=== PATIENT | female | born 1955 | race Caucasian/White ===

== ENCOUNTER → 2018-01-19 | Outpatient (CLI) | payer OTHER ==
[~2018-01-19] MED LIST: ALBUTEROL PO; ALBUTEROL0.63 MG/3 INH; BIOTIN PO; BYSTOLIC10 MG PO; CEFTIN500 MG PO; DIAZEPAM5 MG PO; FLUDROCORTISON0.1 MG PO; HYDROCODON-ACE1 EA12 PO; I-CAPS WITH LU1 EACH PO; LEVOTHYROXINE50 MCG PO; LEXAPRO10 MG PO; LISINOPRIL10 MG PO; MONTELUKAST SOD10 MG PO; NEXIUM40 MG PO; OMEPRAZOLE40 MG PO; OSPHENA PO; VITAMIN B12 PO
--- NOTE | 2018-01-19 14:35 | Diagnostic Imaging Report ---
PROCEDURE:C-SPINE AP AND LAT WITH FLEX AND EXT COMPARISON:[facility], DX, SPINE CERVICAL AP\T\LAT FLEX\T\EXT, 06/29/2017, 0:00. INDICATIONS:C-SPINE HERNIATION FINDINGS: The cervical vertebral bodies to be visualized to the level of C7. Anterior cervical discectomy and fusion hardware at C6-7 is intact stable in appearance without lucency to suggest loosening. Alignment: 1 mm anterolisthesis at C3 on C4 and at C5 on C6 on neutral position. Only the C5-6 anterolisthesis was present on previous exam and is stable. With flexion, there is anterolisthesis of C3 on C4 of 2 mm. This is stable compared to previous exam. There is anterolisthesis of C4 on C5 of 2 mm. This is stable compared to previous exam. Listhesis of C5 on C6 is unchanged compared to neutral position. With extension, anterolisthesis of C3 on C4 diminishes to 1 mm. Listhesis of C5 on C6 is unchanged. The vertebral body heights are symmetric. Disc space narrowing and endplate osteophytic lipping of C4-5 and C5-6 are stable. The facets and spinous processes are normally aligned. No prevertebral soft tissue swelling. Alignment is maintained on AP image. Skull base and upper chest are unremarkable. CONCLUSION: 1. Stable ACDF of C6-7. No complications associated with the hardware. 2. Anterolisthesis of C3 on C4 increasing on flexion with some reduction on extension. 3. Anterolisthesis of C4 on C5 visible on flexion with complete reduction on extension. 4. Static anterolisthesis of C5 on C6. 5. Stable endplate degenerative changes. Dictated by: Reynaldo Roberson M.D. on 01/19/2018 at 14:35 Electronically approved by: Reynaldo Roberson M.D. on 01/19/2018 at 14:35
== END ==
LOC: RAD 13:30
PROVIDERS: ATTEND Neurological Surgery
DX: M50.20 Other cervical disc displacement, unspecified cervical region (principal); Z98.1 Arthrodesis status
CPT/HCPCS: 72050

== ENCOUNTER → 2018-06-17 | Outpatient (CLI) | payer OTHER ==
--- NOTE | 2018-06-17 10:18 | Diagnostic Imaging Report ---
PROCEDURE:ULTRASOUND GUIDANCE FOR PROCEDURE (LEFT THYROID NODULE FINE NEEDLE ASPIRATION) COMPARISON:None. INDICATIONS:Left Thyroid Nodule FINDINGS/CONCLUSION: Ultrasound guidance was used to perform a left thyroid nodule fine needle aspiration. Please refer to the FNA report for additional details. Dictated by: ROMINA MADDEN M.D. on 06/17/2018 at 10:24 Electronically approved by: ROMINA MADDEN M.D. on 06/17/2018 at 10:24
--- NOTE | 2018-06-17 10:21 | Diagnostic Imaging Report ---
PROCEDURE:ULTRASOUND GUIDED LEFT THYROID LOBE NODULE FINE NEEDLE ASPIRATION COMPARISON:None. INDICATIONS:Left Thyroid Nodule INTERACTIVE DESIGNER: Josefa Madden MD ANESTHESIA/MEDICATIONS: Local subcutaneous 1% lidocaine 5 cc FINDINGS: Written and verbal consent were obtained. Patient was placed in the supine position. Preliminary ultrasound identified a hypoechoic nodule in the left thyroid lobe with coarse calcifications. A safe entry route was identified and the overlying skin was prepped and draped in usual sterile fashion. Lidocaine 1% was used for local pain control. With ultrasound guidance, a total of seven fine needle aspirates were obtained with a 25 gauge needle. Some resistance was encountered on some aspirates due to course calcifications impeding needle passes. Multiple aspirates were obtained and provided to the pathology staff. The needle was removed and a sterile bandage was placed. The patient tolerated the procedure well, and there were no immediate post-procedural complications. CONCLUSION: Ultrasound guided fine needle aspiration of left thyroid lobe nodule. Dictated by: JOSEFA MADDEN M.D. on 06/17/2018 at 10:28 Electronically approved by: JOSEFA MADDEN M.D. on 06/17/2018 at 10:28
== END ==
LOC: US 08:40
PROVIDERS: ATTEND Family Medicine
DX: E07.89 Other specified disorders of thyroid (principal)
CPT/HCPCS: 10022; 76942; 88112; 88305

== ENCOUNTER → 2018-12-28 | Outpatient (CLI) | payer OTHER ==
[~2018-12-28] MED LIST changes: +IOPAMIDOL 370 MG/ML 200 ML INFUS..BTL INJ ONE; +SODIUM CHLORIDE 0.9% 50ML 50 ML ONE
[2018-12-28 08:53] LABS: BLOOD UREA NITROGEN 16 mg/dL (7-26); BUN/CREATININE RATIO 20 (6-25); EST GLOMERULAR FILTRATION RATE > 60 ML/MIN (60-)
--- NOTE | 2018-12-28 10:43 | Diagnostic Imaging Report ---
EXAM: CT ABDOMEN AND PELVIS WITH IV CONTRAST INDICATION: Right sided abdominal pain. COMPARISON: CT abdomen/pelvis 11/29/2016 report, however images are not available for review. TECHNIQUE: The abdomen and pelvis were scanned using a multidetector helical scanner. Coronal and sagittal reformations were obtained. Routine protocol performed. IV Contrast: 100 cc Isovue-370 Dose length product: 776.4 mGy-cm Dose modulation, iterative reconstruction, and/or weight based adjustment of the mA/kV was utilized to reduce the radiation dose to as low as reasonably achievable. FINDINGS: LOWER THORAX: No consolidations LIVER: No masses or biliary dilatation. Status post cholecystectomy. SPLEEN: No splenomegaly. PANCREAS: No evidence of mass or ductal dilatation. ADRENALS: No adrenal nodule. KIDNEYS: No evidence of stone, mass, or hydronephrosis. GI TRACT: No distention, wall thickening or evidence of obstruction. Normal appendix. Colonic diverticulosis without CT evidence of diverticulitis. VESSELS: There is atherosclerotic calcification relating to mild stenosis at the origin of the celiac artery. There is noncalcified plaque at the origin of the superior mesenteric artery leading to severe focal stenosis on series 2, image 24. The distal mesenteric branches are well opacified. The CA is unremarkable. PERITONEUM/RETROPERITONEUM: No free air or fluid LYMPH NODES: No lymphadenopathy PELVIS: Unremarkable. BONES AND SOFT TISSUES: No acute osseous abnormality. No suspicious lytic or blastic lesions. Mild degenerative disc changes, most pronounced at L5-S1. 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 Patent CA. No CT evidence of bowel ischemia. While report from CT on 11/29/2016 is available, images are not available for review at the time of this dictation for comparison. Signed by: Dr. Josefa Gee MD on 12/28/2018 10:39 AM
== END ==
LOC: CT 07:50
PROVIDERS: ATTEND Family Medicine
DX: R10.9 Unspecified abdominal pain (principal)
CPT/HCPCS: 36415; 74177; 82565; 84520; Q9967

== ENCOUNTER 2019-02-03 13:50 | Observation (INO) | payer OTHER ==
[2019-02-02 15:53] LABS: BASOPHILS % 0.6 % (0.0-1.0); EOSINOPHILS # (AUTO) 0.4 (0.0-0.4); EOSINOPHILS % 6.4 % (0.0-6.0); HEMATOCRIT 39.3 % (34.2-44.1); HEMOGLOBIN 13.7 g/dL (12.0-16.0); LYMPHOCYTES # (AUTO) 2.7 (1.0-3.2); LYMPHOCYTES % 40.3 % (18.0-39.1); MEAN CORPUSCULAR HEMOGLOBIN 32.9 pg (28-32); MEAN CORPUSCULAR HGB CONC 34.9 g/dL (31-35); MEAN CORPUSCULAR VOLUME 94.5 fL (81-99); MONOCYTES # (AUTO) 0.5 (0.2-0.8); MONOCYTES % 7.9 % (4.4-11.3); NEUTROPHILS % 44.4 % (38.7-80.0); PLATELET COUNT 214 x10e3/uL (140-360); RED BLOOD COUNT 4.16 x10e6/uL (3.6-5.1); RED CELL DISTRIBUTION WIDTH 12.2 % (11.7-14.4)
[2019-02-02 16:03] LABS: INR 0.92; PROTHROMBIN TIME 12.8 seconds (11.9-14.5)
[2019-02-02 16:14] LABS: ALANINE AMINOTRANSFERASE 19 IU/L (0-55); ALBUMIN 3.7 g/dL (3.5-5.0); ALKALINE PHOSPHATASE 91 IU/L (40-150); ANION GAP 10.1 mmol/L (8-16); BLOOD UREA NITROGEN 13 mg/dL (7-26); BUN/CREATININE RATIO 17 (6-25); CALCIUM 9.9 mg/dL (8.4-10.2); CARBON DIOXIDE 28 mmol/L (22-29); CHLORIDE 106 mmol/L (98-107); CREATININE, SERUM 0.76 mg/dL (0.57-1.11); EST GLOMERULAR FILTRATION RATE > 60 ML/MIN (60-); GLUCOSE 85 mg/dL (74-118); POTASSIUM 4.1 mmol/L (3.5-5.1); SODIUM 140 mmol/L (136-145)
--- NOTE | 2019-02-02 19:00 | NUR ---
RECEIVED REPORT FROM DAY NURSE. PATIENT IS RESTING COMFORTABLY IN BED. BED IS IN THE LOWEST POSITION AND CALL SMITH IS WITHIN REACH. WILL CONTINUE TO MONITOR PATIENT.
[2019-02-03] VITALS (9 sets, daily range): BP systolic 126–186; BP diastolic 67–113
[~2019-02-03] VITALS: Ht 154.9 cm; Wt 97.1 kg
[~2019-02-03 13:50] MED LIST changes: +ALPRAZOLAM0.5 MG PO; -IOPAMIDOL 370 MG/ML 200 ML INFUS..BTL INJ ONE; -SODIUM CHLORIDE 0.9% 50ML 50 ML ONE
--- OUTSIDE RECORDS SUMMARY | 2019-02-03 13:52 | XMS REPORT | Summary of Care ---
Author Author [facility] Address Unknown Phone Unavailable Encounter HQ [facility]) [id number] Date(s): 09/04/15 - 10/03/15 [facility] Discharge Disposition: Home Attending Physician: Nadir Buck MD Vital Signs No data available for this section Problem List No data available for this section Allergies, Adverse Reactions, Alerts Substance Reaction Severity Status NKDA Active Medications No data available for this section Results No data available for this section Immunizations No data available for this section Procedures No data available for this section Social History No data available for this section Assessment and Plan No data available for this section
--- OUTSIDE RECORDS SUMMARY | 2019-02-03 13:52 | XMS REPORT | Summary of Care ---
Author Author [facility] Address Unknown Phone Unavailable Encounter HQ [facility]) [id number] Date(s): 05/06/15 - 06/04/15 formerly [facility] Discharge Disposition: Home Attending Physician: Nadir Buck [...]
--- OUTSIDE RECORDS SUMMARY | 2019-02-03 13:52 | XMS REPORT | Summary of Care ---
Author Organization Unknown Address Unknown Phone Unavailable Encounter HQ Janay[facility]) [id number] Date(s): 03/29/15 - 03/29/15 [facility] [address] [place] [address]- Discharge Disposition: Home Physician Attending: Santhosh Hicks MD Physician Admitting: Santhosh Hicks MD Physician_Referring: Santhosh Hicks MD Vital Signs Most recent to 1 oldest [Reference Range]: Height 157.48 cm (03/29/15 1:00 PM) Weight 117.273 kg (03/29/15 1:00 PM) Body Mass Index 47.29 m2 (03/29/15 1:00 PM) Problem List No data available for this [...]
--- OUTSIDE RECORDS SUMMARY | 2019-02-03 13:52 | XMS REPORT | Summary of Care ---
Author Organization Unknown Address Unknown Phone Unavailable Encounter HQ [facility]an[facility]slim[facility]) [id number] Date(s): 04/04/15 - 05/03/15 [facility] Discharge Disposition: Home Physician Attending: Nadir Buck MD Vital Signs No data [...]
--- OUTSIDE RECORDS SUMMARY | 2019-02-03 13:52 | XMS REPORT | Continuity of Care Document ---
Author Author Tracy mikal Organization Interface Address Unknown Phone Unavailable Problems Problem Status Onset Date Classification Date Reported Comments Source M25.50 - PAIN IN UNSPECIFIED JOINT Active 03/30/2018 [facility] RT HAND INFECTION Active 03/29/2015 [facility] RIGHT HAND/MIDDLE FINGER Active [facility] RT HAND MIDDLE FINGER Active [facility] Medications Medication Details Route Status Patient Instructions Ordering Provider Order Date Source Allergies, Adverse Reactions, Alerts Substance Category Reaction Severity Reaction type Status Date Reported Comments Source Immunizations Immunization Date Given Site Status Last Updated Comments Source Results Order Name Results Value Reference Range Date Interpretation Comments Source Hand 3 views Bilateral DX Hand 3 views Bilateral DX EXAM: XR BILATERAL HAND 3 VIEWS DATE: 03/30/2018 2:27 PM CDT INDICATION: - M25.50 Pain in unspecified joint COMPARISON: None TECHNIQUE: PA, lateral and oblique radiographs of the bilateral hands. FINDINGS: No acute fracture or malalignment is identified. Mild narrowing of the intercarpal joints and interphalangeal joints visualized bilaterally. No signs of erosions. No osteophytosis. No soft tissue abnormality is identified. IMPRESSION: Specific mild narrowing of the intercarpal joints and interphalangeal joints. This could be secondary to osteoarthritis. 03/30/2018 - - Read by: Danny Horvath MD Dictated Date/time: 03/30/18 14:57 Electronically Signed by: Danny Horvath MD 03/30/18 14:59 FINAL REPORT [facility] Foot 3 views bilateral DX Foot 3 views bilateral DX EXAM: XR BILATERAL FOOT 3 VIEWS DATE: 03/30/2018 2:27 PM CDT INDICATION: - M25.50 Pain in unspecified joint COMPARISON: None TECHNIQUE: AP, lateral and oblique radiographs of the bilateral feet FINDINGS: No acute fracture or malalignment is identified. Midfoot DJD noted bilaterally. Achilles and plantar enthesophyte also visualized bilaterally. No soft tissue abnormality is identified. IMPRESSION: 1. Midfoot DJD bilaterally. 2. Achilles and plantar enthesophytes. 03/30/2018 - - Read by: Danny Horvath MD Dictated Date/time: 03/30/18 14:59 Electronically Signed by: Danny Horvath MD 03/30/18 15:05 FINAL REPORT [facility] Vital Signs Vital Sign Value Date Comments Source Weight 117.273 03/29/2015 [facility] BMI Calculated 47.29 03/29/2015 [facility] Height 157.48 cm 03/29/2015 [facility] Encounters Location Location Details Encounter Type Encounter Number Reason For Visit Attending Provider ADM Date DC Date Status Source [facility] Outpatient [id number] Santhosh Hicks 03/29/2015 03/30/2015 [facility] [id number] Nadir Buck 04/04/2015 05/04/2015 [facility] [id number] Nadir Buck 05/06/2015 06/05/2015 [facility] [id number] Nadir Buck 06/05/2015 07/05/2015 [facility] [place] [facility] [id number] Nadir Buck 07/05/2015 07/24/2015 [facility] [id number] Nadir Buck 08/05/2015 09/04/2015 [facility] [id number] Nadir Buck 09/04/2015 10/04/2015 [facility] [place] [facility] [place] [facility] [id number] Mirna Lott 03/30/2018 03/31/2018 [facility] [place] Procedures Procedure Code Date Perfomer Comments Source
--- OUTSIDE RECORDS SUMMARY | 2019-02-03 13:52 | XMS REPORT ---
Author Author [facility] Address Unknown Phone Unavailable Care Team Providers Care Executive Administrative Asst Name Role Phone Marian TORRES Unavailable Unavailable ANIKA SANCHEZ Unavailable Unavailable DIANA JETER Unavailable Unavailable Problems This patient has no known problems. Allergies, Adverse Reactions, Alerts This patient has no known allergies or adverse reactions. Medications This patient has no known medications. Results Test Description Test Time Test Comments Text Results Atomic Results Result Comments CT ABDOMEN/PELVIS W 2018-12-28 10:23:00 [place] [address] Patient Name: EMMA RYAN MR #: [id number] : 1955 Age/Sex: 63/F Req #: [id number] Adm Physician: Ordered by: ANIA TORRES M.D. Report #: [id number] Location: CT Room/Bed: Procedure: [id number] CT/CT ABDOMEN/PELVIS W Exam Date: 12/28/18 Exam Time: 0914 REPORT STATUS: Signed EXAM: CT ABDOMEN AND PELVIS WITH IV CONTRAST INDICATION: Right sided abdominal pain. COMPARISON: CT abdomen/pelvis 11/29/2016 report, however images are not available for review. TECHNIQUE: The abdomen and pelvis were scanned using a multidetector helical scanner. Coronal and sagittal reformations were obtained. Routine protocol performed. IV Contrast: 100 cc Isovue-370 Dose length product: 776.4 mGy-cm Dose modulation, iterative reconstruction, and/or weight based adjustment of the mA/kV was utilized to reduce the radiation dose to as low as reasonably achievable. FINDINGS: LOWER THORAX: No consolidations LIVER: No masses or biliary dilatation. Status post cholecystectomy. SPLEEN: No splenomegaly. PANCREAS: No evidence of mass or ductal dilatation. ADRENALS: No adrenal nodule. KIDNEYS: No evidence of stone, mass, or hydronephrosis. GI TRACT: No distention, wall thickening or evidence of obstruction. Normal appendix. Colonic diverticulosis without CT evidence of d iverticulitis. VESSELS: There is atherosclerotic calcification relating to mild stenosis at the origin of the celiac artery. There is noncalcified plaque at the origin of the superior mesenteric artery leading to severe focal stenosis on series 2, image 24. The distal mesenteric branches are well opacified. The CA is unremarkable. PERITONEUM/RETROPERITONEUM: No free air or fluid LYMPH NODES: No lymphadenopathy PELVIS: Unremarkable. BONES AND SOFT TISSUES: No acute osseous abnormality. No suspicious lytic or blastic lesions. Mild degenerative disc changes, most pronounced at L5-S1. 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 Patent CA. No CT evidence of bowel ischemia. While report from CT on 11/29/2016 is available, images are not available for review at the time of this dictation for comparison. Isabel d by: Dr. Romina Madden MD on 12/28/2018 10:39 AM Dictated By: ROMINA MADDEN MD 1039 Transcribed By: SHU on 12/28/18 1039 COPY TO: ANIA TORRES M.D. FNA THYROID 2018-06-17 10:28:00 [place] [address] Patient Name: EMMA RYAN MR #: [id number] : 1955 Age/Sex: 63/F Req #: [id number] Adm Physician: Ordered by: ANIKA SANCHEZ DO Report #: [id number] Location: US Room/Bed: Procedure: [id number] US/FNA THYROID Exam Date: Exam Time: REPORT STATUS: Signed PROCEDURE: ULTRASOUND GUIDED LEFT THYROID LOBE NODULE FINE NEEDLE ASPIRATION COMPARISON: None. INDICATIONS: Left Thyroid Nodule OPERATIONAL REVIEW SERGEANT: Romina Madden MD ANESTHESIA/MEDICATIONS: Local subcutaneous 1% lidocaine 5 cc FINDINGS: Written and verbal consent were obtained. Patient was placed in the supine position. Preliminary ultrasound identified a hypoechoic nodule in the left thyroid lobe with coarse calcifications. A safe entry route was identified and the overlying skin was prepped and draped in usual sterile fashion. Lidocaine 1% was used for local pain control. With ultrasound guidance, a total of seven fine needle aspirates were obtained with a 25 gauge needle. Some resistance was encountered on some aspirates due to course calcifications impeding needle passes. Multiple aspirates were obtained and provided to the pathology staff. The needle was removed and a sterile bandage was placed. The patient tolerated the procedure well, and there were no immediate post-procedural complications. CONCLUSION: Ultrasound guided fine needle aspiration of left thyroid lobe nodule. Dictated by: ROMINA MADDEN M.D. on 06/17/2018 at 10:28 Electronically approved by: ZAIRA MADDEN M.D. on 06/17/2018 at 10:28 Dictated By: ROMINA MADDEN MD 1028 Transcribed By: RUTH on 06/17/18 1028 COPY TO: ANIKA SANCHEZ DO GUIDANCE FOR PROCEDURE 2018-06-17 10:24:00 [place] [address] Patient Name: EMMA RYAN MR #: [id number] : 1955 Age/Sex: 63/F Req #: [id number] Adm Physician: Ordered by: ANIKA SANCHEZ DO Report #: [id number] Location: Room/Bed: Procedure: US/US GUIDANCE FOR PROCEDURE Exam Date: Exam Time: REPORT STATUS: Signed PROCEDURE: ULTRASOUND GUIDANCE FOR PROCEDURE (LEFT THYROID NODULE FINE NEEDLE ASPIRATION) COMPARISON: None. INDICATIONS: Left Thyroid Nodule FINDINGS/CONCLUSION: Ultrasound guidance was used to perform a left thyroid nodule fine needle aspiration. Please refer to the FNA report for additional details. Dictated by: ROMINA MADDEN M.D. on 06/17/2018 at 10:24 Electronically approved by: ROMINA MADDEN M.D. on 06/17/2018 at 10:24 Dictated By: ROMINA MADDEN MD 1024 Transcribed By: RUTH on 06/17/18 1024 COPY TO: ANIKA SANCHEZ DO SPINE CERVICAL AP LAT FLEX EXT [place] [address] Patient Name: EMMA RYAN MR #: [id number] : 1955 Age/Sex: 62/F Req #: [id number] Adm Physician: Ordered by: DIANA JETER MD Report #: [id number] Location: [facility] Room/Bed: Procedure: [id number] DX/SPINE CERVICAL AP LAT FLEX EXT Exam Date: 01/19/18 Exam Time: 1330 REPORT STATUS: Signed PROCEDURE: C-SPINE AP AND LAT WITH FLEX AND EXT COMPARISON: [facility], DX, SPINE CERVICAL AP T LAT FLEX T EXT, 06/29/2017, 0:00. INDICATIONS: C-SPINE HERNIATION FINDINGS: The cervical vertebral bodies to be visualized to the level of C7. Anterior cervical discectomy and fusion hardware at C6-7 is intact stable in appearance without lucency to suggest loosening. Alignment: 1 mm anterolisthesis at C3 on C4 and at C5 on C6 on neutral position. Only the C5- 6 anterolisthesis was present on previous exam and is stable. With flexion, there is anterolisthesis of C3 on C4 of 2 mm. This is stable compared to previous exam. There is anterolisthesis of C4 on C5 of 2 mm. This is stable compared to previous exam. Listhesis of C5 on C6 is unchanged co mpared to neutral position. With extension, anterolisthesis of C3 on C4 diminishes to 1 mm. Listhesis of C5 on C6 is unchanged. The vertebral body heights are symmetric. Disc space narrowing and endplate osteophytic lipping of C4-5 and C5-6 are stable. The facets and spinous processes are normally aligned. No prevertebral soft tissue swelling. Alignment is maintained on AP image. Skull base and upper chest are unremarkable. CONCLUSION: 1. Stable ACDF of C6-7. No complications associated with the hardware. 2. Anterolisthesis of C3 on C4 increasing on flexion with some reduction on extension. 3. Anterolisthesis of C4 on C5 visible on flexion with complete reduction on extension. 4. Static anterolisthesis of C5 on C6. 5. Stable endplate degenerative changes. Dictated by: Raghav Roberson M.D. on 01/19/2018 at 14:35 Electronically approved by: Raghav Roberson M.D. on 01/19/2018 at 14:35 Dictated By: RAGHAV ROBERSON MD 1435 Transcribed By: RUTH on 01/19/18 1435 COPY TO: DIANA JETER MD SPINE CERVICAL AP LAT FLEX EXT [facility] [place] [address] Patient Name: EMMA RYAN MR #: [id number] : 1955 Age/Sex: 62/F Req #: [id number] Adm Physician: Ordered by: DIANA JETER MD Report #: [id number] Location: [facility] Room/Bed: Procedure: [id number] DX/SPINE CERVICAL AP LAT FLEX EXT Exam Date: 06/29/17 Exam Time: 1120 REPORT STATUS: Signed PROCEDURE: C-SPINE AP AND LAT WITH FLEX AND EXT COMPARISON: [facility], DX, C-SPINE 2 VIEWS AP T LATERAL, 05/28/2017, 7:14. INDICATIONS: Cervical fusion FINDINGS: C1 through C7 are visualized on the lateral view. The patient is status post anterior fusion of C6-C7 with metallic disc spacer that is in adequate alignment. No obvious bony fusion has occurred. Flexion and extension views demonstrate no change in alignment. The prevertebral soft tissues are not swollen. Mild degenerative change involving C4 and C5 is present. CONCLUSION: Status post C6-C7 fusion with a disc spacer present. Intact hardware with adequate alignment. Emely Armando D.O. Dictated by: Emely Armando D.O. on 06/29/2017 at 12:47 Electronically approved by: Emely Armando D.O. on 06/29/2017 at 12:47 Dictated By: EMELY ARMANDO DO 46 Transcribed By: RUTH on 06/29/171246 COPY TO: DIANA JETER MD
--- OUTSIDE RECORDS SUMMARY | 2019-02-03 13:52 | XMS REPORT | Summary of Care ---
Author Author [facility] Address Unknown Phone Unavailable Encounter HQ [facility]) [id number] Date(s): 08/05/15 - 09/03/15 [facility] Discharge Disposition: Home Attending Physician: Nadir [...]
--- OUTSIDE RECORDS SUMMARY | 2019-02-03 13:52 | XMS REPORT | Summary of Care ---
Author Author [facility] Address Unknown Phone Unavailable Encounter HQ [facility]) [id number] Date(s): 07/05/15 - 07/24/15 [facility] Discharge Disposition: Home Attending Physician: Nadir Buck [...]
--- OUTSIDE RECORDS SUMMARY | 2019-02-03 13:52 | XMS REPORT | Summary of Care ---
Author Author [facility] Outpatient Imaging [facility] Outpatient Imaging [facility] Address Unknown Phone Unavailable Encounter HQ Katient[facility]) [id number] Date(s): 03/30/18 - 03/30/18 [facility] Outpatient Imaging [facility] [address] [facility], [address] [place] [phone] Discharge Disposition: Home or Self Care Attending Physician: Mirna Lott MD Vital Signs No data available for [...]
--- OUTSIDE RECORDS SUMMARY | 2019-02-03 13:52 | XMS REPORT | Clinical Summary ---
Author Author [facility]ush [facility] Organization [facility] Address Unknown Phone Unavailable Care Team Providers Care Team Foreman Name Role Phone Asked, No Pcp PCP Unavailable Allergies No Known Allergies Medications End Date Status Medication Sig Dispensed Refills Start Date Active dicyclomine (BENTYL) 20 Take 20 mg by 1 mg tablet mouth every 6 7 (six) hours as needed. Active lisinopril Take 20 mg by 3 (PRINIVIL,ZESTRIL) 20 mg mouth once 6 tablet daily. Active esomeprazole (NexIUM) 40 Take 40 mg by 1 MG capsule mouth once 6 daily. Active fludrocortisone 0.1 mg Take by mouth 1 tablet once daily. 6 Active escitalopram (LEXAPRO) 10 Take 10 mg by 1 MG tablet mouth once 6 daily. Active cholecalciferol, vitamin Take 2,000 0 D3, (VITAMIN D3) 2,000 Units by unit capsule capsule mouth daily. Active traMADol (ULTRAM) 50 mg Take 50 mg by 0 tablet mouth every 6 (six) hours as needed for moderate pain. Active meclizine (ANTIVERT) 25 Take 25 mg by 0 mg tablet mouth 3 (three) times a day as needed for dizziness. Active ondansetron ODT Take 4 mg by 0 (ZOFRAN-ODT) 4 MG mouth every 8 disintegrating tablet (eight) hours as needed for nausea or vomiting. Active metroNIDAZOLE (FLAGYL) Take 500 mg 0 500 MG tablet by mouth 3 (three) times a day. Active levothyroxine (SYNTHROID, TAKE 1 TABLET 30 tablet 1 LEVOXYL) 75 mcg tablet ONCE DAILY ON 8 AN EMPTY STOMACH WITH WATER,WAIT 1 HOUR BEFORE EATING/TAKING MEDS-DAY! 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 Adrenal insufficiency 12/02/2016 Toxic thyroid nodule 12/02/2016 Hypothyroidism (acquired) 12/02/2016 History of hyperthyroidism 12/02/2016 Encounters Care Team Description Date Type Specialty Lesvia Lr MA 03/30/2018 Telephone Endocrinology Veronica Pearl MD 03/21/2018 Refill Endocrinology after 02/02/2018 Family History Medical History Relation Name Comments Heart disease Father Melanoma Mother Heart disease Paternal Grandfather Pancreatic cancer Sister Relation Name Status Comments Father Mother Alive Paternal Grandfather Sister Social History Date Tobacco Use Types Packs/Day Years Used Never Smoker Smokeless Tobacco: Never Used Alcohol Use Drinks/Week oz/Week Comments No Sex Assigned at Date Recorded Not on file Industry Job Start Date Occupation Not on file Not on file Not on file Travel End Travel History Travel Start No recent travel history available. Last Filed Vital Signs Not on file Plan of Treatment Health Maintenance Due Date Last Done Comments CERVICAL CANCER SCREENING 1978 BREAST CANCER SCREENING 2007 COLON CANCER SCREENING 2007 SHINGLES VACCINES (#1) 2007 INFLUENZA VACCINE 05/25/2019 Results Not on fileafter 02/02/2018 Insurance Payer Benefit Subscriber ID Type Phone Address Plan / Group CIGNA CIGNA OPEN xxxxxxxxxxx HMO ACCESS/NET WORK Advance Directives Patient has advance care planning documents on file. For more information, lewis altamirano contact: Ayush Cortez [address] [place] [address]
--- OUTSIDE RECORDS SUMMARY | 2019-02-03 13:52 | XMS REPORT | Summary of Care ---
Author Author [facility] Address Unknown Phone Unavailable Encounter [facility] [facility]) [id number] Date(s): 06/05/15 - 07/04/15 [facility] Discharge Disposition: Home Attending Physician: Nadir Buck [...]
[2019-02-03] MEDS ORDERED: ALPRAZOLAM 0.5 MG TAB ONE (13:57)
[2019-02-03] MEDS ORDERED: DIPHENHYDRAMINE HCL 25 MG CAP ONE (13:58)
[2019-02-03] MEDS ORDERED: MIDAZOLAM HCL 2 MG/2 ML VIAL ONE ×4 (14:31→15:47)
[2019-02-03] MEDS ORDERED: LIDOCAINE HCL 2% LOCAL 20 ML VIAL ONE (14:31)
[2019-02-03] MEDS ORDERED: FENTANYL CITRATE/PF 100MCG/2 ML INJ ONE ×2 (14:31→15:40)
[2019-02-03] MEDS ORDERED: HEPARIN SOD/SOD CHLORIDE 2,000 ML ONE (14:31)
[2019-02-03] MEDS ORDERED: IOPAMIDOL 300MG/ML 100 ML INFUS..BTL IV ONE ×3 (14:32→15:36)
[2019-02-03] MEDS ORDERED: SODIUM CHLORIDE 0.9% 1000ML 1,000 ML ONE (14:53)
[2019-02-03] MEDS ORDERED: IOPAMIDOL 300MG/ML 50ML INFUS..BTL IV ONE (15:28)
[2019-02-03] MEDS ORDERED: TICAGRELOR 90 MG TABLET ONE (15:43)
--- NOTE | 2019-02-03 16:00 | NUR ---
Transported to PACU room 20, s/p C and abdominal angiogram. Patient drowsy, easily aroused. Maintains airway and room air saturations of 99%. No gross issues of pressure, pain, pallor, or dysrhythmia. IV site patent with NS 0.9% at KVO to left hand. Patient hemodynamically stable with hemostasis to right groin, right groin dressing C/D/I without s/s of bleeding. Family at .
--- OUTSIDE RECORDS SUMMARY | 2019-02-03 16:20 | XMS REPORT | Clinical Summary ---
Author Author [facility]ush [facility] Organization [facility] Address Unknown Phone Unavailable Care Team Providers Care Professor Of Environmental Studies Name Role Phone Asked, No Pcp PCP [...] more information, lewis altamirano contact: Ayush Cortez [address] [place] [address]
--- NOTE | 2019-02-03 16:45 | NUR ---
Transported to room 183 via stretcher for telemetry observation. Report given to VÍCTOR Smallwood. Patient A, A, O x3, VSS, right groin dressing C/D/I, IV with NS at 75 ml/hr to left hand, denies pain, no complaints, family at bedside.
--- NOTE | 2019-02-03 17:10 | NUR ---
Recvd patient from [employer] lab[employer], drowsy, follows verbal orders, not in any distress, resp even and unlabored. Right groin incision area, no bleeding, hematoma and its soft to touch, keep monitoring, side rails X3 up
--- NOTE | 2019-02-03 20:30 | NUR ---
PATIENT IS COMPLAINING OF PAIN IN THE RIGHT GROIN. PATIENT ALSO HAS AN ELEVATED BLOOD PRESSURE. PAGED AWAITING CALL BACK.
--- NOTE | 2019-02-03 21:00 | NUR ---
MD CALLED BACK AND GAVE NEW ORDERS FOR PAIN AND BLOOD PRESSURE MEDICATIONS.
[2019-02-03] MEDS ORDERED: HYDRALAZINE HCL 10 MG TAB PO ONE (21:15)
[2019-02-03] MEDS ORDERED: MORPHINE SULFATE 2 MG/ML SYR 1ML IV ONE (21:15)
[2019-02-03] MEDS ORDERED: MORPHINE SULFATE INJ 4 MG/ML INJ 1ML IV ONE (21:30)
--- NOTE | 2019-02-03 23:30 | Operative Report ---
DATE OF PROCEDURE: 02/03/2019 SURGEON: Jamir Weir MD REPORT TITLE: Cardiac Director Compensation Procedure INDICATIONS: 1. Coronary artery disease. 2. Mesenteric artery stenosis. 3. Abnormal stress test. PROCEDURES PERFORMED: 1. Left heart catheterization, selective coronary angiography, left ventriculography. 2. Abdominal aortogram. 3. Bilateral renal angiograms. 4. Stent placement to the mesenteric artery. 5. Deployment of right groin Vascade closure device. COMPLICATIONS: None. RECOMMENDATIONS: Medical therapy. DESCRIPTION OF PROCEDURE: Access was obtained in the right femoral artery, 6-Mauritanian sheath was placed. Abdominal aortogram demonstrated mild coronary artery disease, 10-20% luminal stenosis without critical stenosis or occlusion. LV ejection fraction 60%. LV end-diastolic pressure of 10. No gradient across the aortic valve on pullback. Abdominal aortogram demonstrated a widely patent abdominal aorta. Selective renal angiography demonstrated mild disease in the left common renal artery, superior mesenteric artery had 80% proximal stenosis. A decision was made to intervene on the mesenteric artery. The sheath was exchanged to a 7-Mauritanian hockey-stick sheath, wire was advanced across the lesion for support, a 7 x 39 mm Elite stent was deployed at 11 atmospheres. Excellent result with less than 10% restenosis. No complication. Sheath was repaired using Mynx closure device. The patient was observed in the hospital. Jamir Weir MD [facility] /[id number]
[2019-02-04 04:41] VITALS: BP 145/81
--- NOTE | 2019-02-04 07:01 | NUR ---
report given to day nurse. patient is resting in bed. call diehl is within reach.
[2019-02-04 08:43] VITALS: BP 145/71
[2019-02-04 08:57] VITALS: BP 145/71
[2019-02-04] MEDS ORDERED: ASPIR 8181 MG PO (09:05)
[2019-02-04] MEDS ORDERED: ATORVASTATIN CA20 MG PO (09:05)
[2019-02-04] MEDS ORDERED: CLOPIDOGREL75 MG PO (09:06)
--- NOTE | 2019-02-04 10:17 | NUR ---
DISCHARGE INSTRUCTIONS REVIEWED WITH PT, VERBALIZED UNDERSTANDING, WHEELED OFF UNIT VIA WC , NO CHANGE IN CONDITION
== END 2019-02-04 10:18 | disposition home or self-care (01) ==
LOC: CATH LAB 13:50 → CATH LAB V 16:11 → IMCU 16:40
PROVIDERS: ADMIT Internal Medicine Interventional Cardiology; ATTEND Internal Medicine Interventional Cardiology
DX: I25.118 Atherosclerotic heart disease of native coronary artery with other forms of angina pectoris (principal); Z01.812 Encounter for preprocedural laboratory examination; R94.39 Abnormal result of other cardiovascular function study; Z82.49 Family history of ischemic heart disease and other diseases of the circulatory system
CPT/HCPCS: 36252; 37236; 93458; C1874; 36245; 36415; 75726; 80053; 85025; 85610; C1766; C1769; C1887; G0378; J2001; J2250; J2270; J7030; Q9967

== ENCOUNTER → 2019-07-13 | Outpatient (CLI) | payer OTHER ==
[~2019-07-13] MED LIST changes: +ASPIR 8181 MG PO; +ATORVASTATIN CA20 MG PO; +CLOPIDOGREL75 MG PO
--- NOTE | 2019-07-13 11:42 | Diagnostic Imaging Report ---
Examination: MRI SPINE CERVICAL WO CONTRAST History: Neck pain and associated weakness. Comparison studies: Cervical spine x-ray 01/19/2018 Technique: Sagittal T1, T2 and IR, axial T2 and axial gradient echo intravenous contrast: None Findings: Alignment: History of normal lordosis. No scoliosis. Cervicomedullary junction: No abnormalities. Patent foramen magnum. Soft tissues: No T2 hyperintense inflammatory changes. Spinal cord: Normal in size and signal from the foramen magnum through T1. Vertebrae: No fractures, infection or neoplasm. Prior anterior discectomy and fusion at C6 and C7. Degenerative changes: C1-C2: No abnormalities. C2-C3: Moderate right neural foraminal narrowing due to uncovertebral and facet arthropathy. No canal and left foraminal stenosis or degenerative disc. C3-C4: Diffuse disc osteophyte complex and moderate bilateral facet arthropathy result in mild right neural foraminal narrowing. No left foraminal or canal stenosis. C4-C5: Severe right and moderate left facet arthropathy result in mild right neural foraminal narrowing. No left foraminal or canal stenosis. Diffuse disc osteophyte complex. C5-C6: Diffuse disc osteophyte complex and mild bilateral uncovertebral arthropathy. No foraminal or canal stenosis. C6-C7: Severe bilateral uncovertebral arthropathy results in moderate bilateral neural foraminal narrowing. No canal stenosis. C7-T1: No abnormalities. IMPRESSION: 1. Degenerative changes at C2-C3 through C6-C7 with moderate right neural foraminal narrowing at C2-C3 and moderate bilateral foraminal narrowing at C6-C7. 2. No canal stenosis. Signed by: Dr. Kelly Lawrence M.D. on 07/13/2019 11:39 AM
== END ==
LOC: MRI 09:23
PROVIDERS: ATTEND Family Medicine
DX: M54.2 Cervicalgia (principal)
CPT/HCPCS: 72141

== ENCOUNTER → 2019-08-24 | Outpatient (RCR) | payer OTHER | LOC: PT 08-01 15:21 | PROVIDERS: ATTEND Neurological Surgery | DX: M50.123 Cervical disc disorder at C6-C7 level with radiculopathy (principal); M53.82 Other specified dorsopathies, cervical region; M62.81 Muscle weakness (generalized) ==

== ENCOUNTER 2019-09-05 13:00 | Outpatient (RCR) | payer OTHER | END 2019-09-23 | LOC: PT 13:00 | PROVIDERS: ATTEND Neurological Surgery | DX: M50.123 Cervical disc disorder at C6-C7 level with radiculopathy (principal) ==

== ENCOUNTER → 2019-11-28 | Outpatient (CLI) | payer OTHER ==
[~2019-11-28] MED LIST changes: +SODIUM CHLORIDE 0.9% 50ML 50 ML ONE
[2019-11-28 13:30] LABS: BLOOD UREA NITROGEN 13 mg/dL (7-26); BUN/CREATININE RATIO 17 (6-25); CREATININE, SERUM 0.77 mg/dL (0.57-1.11); EST GLOMERULAR FILTRATION RATE > 60 ML/MIN (60-)
--- NOTE | 2019-11-28 15:10 | Diagnostic Imaging Report ---
EXAMINATION: CT of the abdomen and pelvis with contrast. TECHNIQUE: Spiral CT images of the abdomen and pelvis were performed from the lung bases to the lesser trochanters after the intravenous administration of 100 cc of 370. Coronal and sagittal reformatted images were obtained. COMPARISON: CT abdomen and pelvis with contrast 12/28/2018 CLINICAL HISTORY:Left-sided abdominal pain, diarrhea, rectal bleeding DISCUSSION: ABDOMEN/PELVIS: LOWER THORAX:Subsegmental atelectasis in the dependent lower lobes. Lung bases are otherwise normal. HEPATOBILIARY: No focal hepatic lesions. No intra-or extrahepatic biliary ductal dilation. The gallbladder has been removed with metallic clips in the gallbladder fossa. SPLEEN: No splenomegaly. Small splenule adjacent to the hilum and anterior aspect of the spleen. PANCREAS: No focal masses or ductal dilatation. ADRENALS: No adrenal nodules. KIDNEYS/URETERS: No hydronephrosis, stones, or solid mass lesions. PELVIC ORGANS/BLADDER: Urinary bladder is incompletely distended and poorly evaluated. Uterus is anteflexed and appears normal. No adnexal mass. PERITONEUM/RETROPERITONEUM: No ascites. No pneumoperitoneum. LYMPH NODES: No pelvic sidewall, retroperitoneal, or mesenteric lymphadenopathy. VESSELS: Interval placement of a stent in the proximal SMA; patency of the stent would be better assessed by CT angiography. The distal main SMA and proximal visceral branches are patent. Mild atherosclerotic calcification at the celiac axis origin without significant stenosis. The CA is widely patent. Mild atherosclerotic calcification of the iliac arterial systems. The abdominal aorta is nonaneurysmal. Portal vein, splenic vein, and central superior mesenteric vein are patent GI TRACT: The large bowel is notable for multiple diverticula along the descending and sigmoid colon without wall thickening or adjacent inflammatory change. The appendix is normal. The stomach is collapsed with prominent rugal folds. No small bowel dilatation to suggest obstruction. BONES AND SOFT TISSUE: No osseous destructive lesions. Multilevel degenerative disc changes and facet arthropathy of the lumbar spine. No soft tissue abnormalities. IMPRESSION: No acute intra-abdominal or pelvic CT abnormalities. Sigmoid and descending colon diverticulosis without findings of diverticulitis. Interval placement of a stent within the proximal superior mesenteric artery, with patency poorly assessed on this examination. Celiac and CA origins remain widely patent. No findings to suggest bowel obstruction or ischemia. Signed by: Dr. Paco Gonzalez M.D. on 11/28/2019 3:08 PM
== END ==
LOC: CT 12:47
PROVIDERS: ATTEND Internal Medicine Gastroenterology
DX: R10.9 Unspecified abdominal pain (principal); K62.5 Hemorrhage of anus and rectum
CPT/HCPCS: 36415; 74177; 82565; 84520

== ENCOUNTER → 2019-11-30 | Day surgery (SDC) | payer OTHER ==
[~2019-11-30] MED LIST changes: +FENTANYL CITRATE/PF 100MCG/2 ML INJ ONE; +GLUCAGON FOR INJ 1 MG VIAL ONE; +HYOSCYAMINE 0.125 MG TAB ONE; +MIDAZOLAM HCL 2 MG/2 ML VIAL ONE; +PROPOFOL IV EMULSION 10 MG/ML 50 ML VIAL ONE; +SIMETHICONE 40 MG/0.6 ML BTL ONE; -SODIUM CHLORIDE 0.9% 50ML 50 ML ONE
[2019-11-30 14:44] VITALS: BP 100/70
--- NOTE | 2019-11-30 15:50 | Operative Report ---
DATE OF PROCEDURE: 11/30/2019 SURGEON: Aneesh Trevino MD PROCEDURE: Colonoscopy with biopsies. INDICATIONS FOR COLONOSCOPY: Colorectal cancer screening, chronic diarrhea, rectal bleeding. MEDICATIONS: The patient was done under MAC, please see anesthesiologist's note. PROCEDURE IN DETAIL: With the patient in the left lateral decubitus position, a flexible fiberoptic Olympus colonoscope was inserted into the rectum with ease and advanced all the way to the cecum. The mucosa overlying the cecum appeared to be within normal limits. The ileocecal valve was intubated and the scope was advanced into the terminal ileum. Biopsies were obtained. The scope was then withdrawn back into the colon. It was then withdrawn slowly. Mucosa overlying the ascending and the transverse appeared to be within normal limits. There was some patchy mild inflammatory changes noted in the left colon with some scattered diverticular disease. Biopsies were obtained. Similar findings were noted in the rectum and biopsies were obtained. The scope was then retroflexed into the distal rectum and moderate-sized internal hemorrhoids were noted, none of which was actively bleeding. The scope was then straightened out and it was subsequently withdrawn after securing an adequate stool specimen that was sent for the appropriate stool studies. The patient tolerated the procedure well. IMPRESSION: 1. Mild patchy left-sided colitis. 2. Diverticulosis. 3. Proctitis, mild. 4. Internal hemorrhoids, none actively bleeding. PLAN: Follow up histology. Follow up stool studies. Initiate Bentyl 10 mg 1 p.o. t.i.d. VSL#3 one p.o. b.i.d. Aneesh Trevino MD [facility] [place]/MODL /[id number] cc: Thony Beatty DO
[2019-11-30 16:22] LABS: WBC,FECAL (FECAL LACTOFERRIN) NEGATIVE (NEGATIVE)
[2019-12-01 14:37] LABS: C DIFFICILE TOXIN A&B AMP PROB NEGATIVE (NEGATIVE)
== END | disposition home or self-care (01) ==
LOC: OR 11:06
PROVIDERS: ATTEND Internal Medicine Gastroenterology
DX: K51.50 Left sided colitis without complications (principal); K57.30 Diverticulosis of large intestine without perforation or abscess without bleeding; K62.89 Other specified diseases of anus and rectum; K64.8 Other hemorrhoids; K21.9 Gastro-esophageal reflux disease without esophagitis; I10 Essential (primary) hypertension; E03.9 Hypothyroidism, unspecified; F32.9 Major depressive disorder, single episode, unspecified; F41.9 Anxiety disorder, unspecified; Z01.810 Encounter for preprocedural cardiovascular examination; Z79.82 Long term (current) use of aspirin; Z68.37 Body mass index [BMI] 37.0-37.9, adult; Z87.891 Personal history of nicotine dependence
CPT/HCPCS: 45380; 83630; 83993; 87045; 87177; 87328; 87493; 93005; J1610; J2250; J2704; J3010; 45378

== ENCOUNTER 2020-04-09 13:37 | Emergency (ER) | payer OTHER ==
[~2020-04-09] VITALS: Ht 154.9 cm; Wt 97.1 kg
[~2020-04-09 13:37] MED LIST changes: -FENTANYL CITRATE/PF 100MCG/2 ML INJ ONE; -GLUCAGON FOR INJ 1 MG VIAL ONE; -HYOSCYAMINE 0.125 MG TAB ONE; -MIDAZOLAM HCL 2 MG/2 ML VIAL ONE; -PROPOFOL IV EMULSION 10 MG/ML 50 ML VIAL ONE; -SIMETHICONE 40 MG/0.6 ML BTL ONE
--- NOTE | 2020-04-09 16:07 | Diagnostic Imaging Report ---
EXAMINATION: CHEST SINGLE (NOT PORTABLE) INDICATION: Shortness of breath COMPARISON: None FINDINGS: LINES/TUBES:None LUNGS:The lungs are well-inflated. No focal consolidation or pulmonary edema. PLEURA:No pleural effusion or pneumothorax. MEDIASTINUM:The cardiomediastinal silhouette appears normal in size and shape. BONES/SOFT TISSUES:No acute osseous injury. ABDOMEN:No free air under the diaphragm. IMPRESSION: No focal pneumonia or pulmonary edema. Signed by: Iliana Infante MD on 04/09/2020 4:04 PM
[2020-04-09] MEDS ORDERED: TYLENOL # 31 EA PO (18:32)
[2020-04-09] MEDS ORDERED: PROAIR HFA INH8.5 GM INH (18:34)
[2020-04-09] MEDS ORDERED: HYDROCODONE/APAP 10MG-325MG TAB PO ONE (18:45)
[2020-04-09 18:48] VITALS: BP 180/76
[2020-04-09] MEDS ORDERED: HYDROCODONE/APAP 10MG-325MG TAB ONE (18:50)
--- NOTE | 2020-04-09 19:03 | Emergency Department Note ---
History of Present Illnes History of Present Illness Chief Complaint: General Medicine Complaints History of Present Illness This is a 64 year old female arrived to the ED with right knee pain and bronchitis. Patient states she is concerned that her cough has not been going away for the past several weeks. Patient states she smokes from the age of [age], denies any history of COPD but has never seen a lung doctor. . Chief Complaint Comment states she is here because her bronchitis and cough have not gone away went to urgent care 2 weeks ago given z pack states little relief hx of inhaler for asthma and has used it former smoker states she coughs mainly at night coughing up lots of mucus Patient also complaining of right knee pain, states she had a vein graft done but denies any other trauma. Historian: Patient, Friend Arrival Mode: Car Onset quality: gradual Duration (how long): day(s) Past Medical/Family History Physician Review I have reviewed the patient's past medical and family history. Any updates have been documented here. Past Medical History Recent Fever: No Clinical Suspicion of Infectio: No New/Unexplained Change in Ment: No Past Medical History: Hypertension, Hypothyroidism Other Medical History: anxiety depression gerd VERTIGO DIVERTICULITIS Other Surgery: right ovarian carpal tunnel GALL BLADDER SX Social History Smoking Cessation: Former smoker Counseling Performed: No Alcohol Use: Social Any Illegal Drug Use: No TB Exposure/Symptoms: No Physically hurt or threatened: No Other Last Tetanus: unknown Any Pre-Existing Lines (PICC,: No Is patient up to date on immun: No Last Flu: ood Last Pneumovax: ood Review of Systems Review of Systems Constitutional: Reports no symptoms, Reports other EENTM: Reports no symptoms Cardiovascular: Reports no symptoms Respiratory: Reports no symptoms Gastrointestinal: Reports no symptoms Genitourinary: Reports no symptoms Musculoskeletal: Reports as per HPI, Reports joint pain Integumentary: Reports no symptoms Neurological: Reports no symptoms Psychological: Reports no symptoms Endocrine: Reports no symptoms Hematological/Lymphatic: Reports no symptoms Physical Exam Related Data Allergies: Coded Allergies: No Known Allergies (Unverified , 12/17/14) Triage Vital Signs Vital Signs Date Time Temp Pulse Resp B/P (MAP) Pulse Ox O2 Delivery O2 Flow Rate FiO2 04/09/20 13:45 97.1 88 18 184/98 97 Physical Exam CONSTITUTIONAL Constitutional: Present well-developed, Present well-nourished HENT HENT: Present normocephalic, Present atraumatic, Present oropharynx clear/moist, Present nose normal HENT L/R: Present left ext ear normal, Present right ext ear normal EYES Eyes: Reports PERRL, Reports conjunctivae normal NECK Neck: Present ROM normal PULMONARY Pulmonary: Present effort normal, Present breath sounds normal CARDIOVASCULAR Cardiovascular: Present regular rhythm, Present heart sounds normal, Present capillary refill normal, Present normal rate GASTROINTESTINAL Abdominal: Present soft, Present nontender, Present bowel sounds normal GENITOURINARY Genitourinary: Present exam deferred SKIN Skin: Present warm, Present dry MUSCULOSKELETAL Musculoskeletal: Present ROM normal, Present tenderness (right knee tender, no crepitus, no palpable effusion, and return steady gait) NEUROLOGICAL Neurological: Present alert, Present oriented x 3, Present no gross motor or sensory deficits PSYCHOLOGICAL Psychological: Present mood/affect normal, Present judgement normal Results Laboratory Lab results reviewed: Yes Imaging Imaging results reviewed: Yes Assessment & Plan Medical Decision Making MDM 64-year-old female arrived to the ED with H medical right knee pain, also complaining of cough for several weeks. 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 Patient's right knee appears mildly swollen but no palpable crepitus Assessment & Plan Final Impression: (1) Bronchitis (2) Knee pain Depart Disposition: ADMITTED Last Vital Signs Date Time Temp Pulse Resp B/P (MAP) Pulse Ox O2 Delivery O2 Flow Rate FiO2 04/09/20 15:00 71 18 145/95 97 04/09/20 13:45 97.1 Home Meds Reported Medications Aspirin (ASPIR 81) 81 Mg Tablet.dr, 81 MG PO DAILY 02/04/19 Atorvastatin Calcium (ATORVASTATIN CALCIUM) 20 Mg Tablet, 40 MG PO HS, #30 TAB 02/04/19 Alprazolam (ALPRAZOLAM) 0.5 Mg Tablet, 0.5 MG PO PRN PRN for ANXIETY, #90 TAB 02/02/19 Lisinopril (LISINOPRIL) 10 Mg Tablet, 20 MG PO DAILY, #30 TAB 05/26/17 Esomeprazole Magnesium (NEXIUM) 40 Mg Capsule.dr, 1 CAP PO DAILY [facility] NEXIUM [facility] 07/16/16 Escitalopram Oxalate (LEXAPRO) 10 Mg Tablet, 20 MG PO HS, #30 TAB 12/18/14 Levothyroxine Sodium (LEVOTHYROXINE SODIUM) 50 Mcg Tablet, 75 MCG PO DAILY, #30 TAB 12/18/14 KAMRON AGUILERA DO Apr 09, 2020 19:03
== END 2020-04-09 18:50 | disposition home or self-care (01) ==
LOC: ER 13:37
DX: R05 Cough (principal); J40 Bronchitis, not specified as acute or chronic; M25.561 Pain in right knee; I10 Essential (primary) hypertension; E03.9 Hypothyroidism, unspecified; F41.9 Anxiety disorder, unspecified
CPT/HCPCS: 71045; 93970; 99284

== ENCOUNTER → 2022-12-30 | Outpatient (CLI) | payer OTHER ==
[~2022-12-30] MED LIST changes: +IOPAMIDOL 370 MG/ML 100 ML INFUS..BTL INJ ONE; +PROAIR HFA INH8.5 GM INH; +TYLENOL # 31 EA PO
[2022-12-30 10:10] LABS: CREATININE, SERUM 0.78 mg/dL (0.57-1.11)
== END ==
LOC: CT 09:22
PROVIDERS: ATTEND Nurse Practitioner
DX: R10.31 Right lower quadrant pain (principal); R19.7 Diarrhea, unspecified
CPT/HCPCS: 36415; 74177; 82565; 84520; Q9967

== ENCOUNTER → 2022-12-31 | Day surgery (SDC) | payer OTHER ==
[2022-12-28 11:12] LABS: BASOPHILS # (AUTO) 0.1 (0.0-0.1); BASOPHILS % 0.8 % (0.0-1.0); EOSINOPHILS # (AUTO) 0.4 (0.0-0.4); EOSINOPHILS % 5.9 % (0.0-6.0); HEMOGLOBIN 13.8 g/dL (12.0-16.0); LYMPHOCYTES # (AUTO) 2.7 (1.0-3.2); LYMPHOCYTES % 40.5 % (18.0-39.1); MEAN CORPUSCULAR HEMOGLOBIN 32.2 pg (28-32); MEAN CORPUSCULAR HGB CONC 33.7 g/dL (31-35); MEAN CORPUSCULAR VOLUME 95.6 fL (81-99); MONOCYTES # (AUTO) 0.5 (0.2-0.8); MONOCYTES % 8.2 % (4.4-11.3); NEUTROPHILS # (AUTO) 2.9 (2.1-6.9); NEUTROPHILS % 44.4 % (38.7-80.0); PLATELET COUNT 216 x10e3/uL (140-360); RED BLOOD COUNT 4.29 x10e6/uL (3.6-5.1); RED CELL DISTRIBUTION WIDTH 12.3 % (11.7-14.4)
[~2022-12-31] MED LIST changes: +FENTANYL CITRATE/PF 100MCG/2 ML INJ ONE; -IOPAMIDOL 370 MG/ML 100 ML INFUS..BTL INJ ONE; +LIDOCAINE HCL 2% LOCAL INJ 5 ML SDV VIAL INJ ONE; +MIDAZOLAM HCL 2 MG/2 ML VIAL ONE; +PROPOFOL IV EMULSION 10 MG/ML 20 ML VIAL ONE
[2022-12-31 11:40] VITALS: BP 136/78
[2022-12-31 14:01] LABS: WBC,FECAL (FECAL LACTOFERRIN) NEGATIVE (NEGATIVE)
== END | disposition home or self-care (01) ==
LOC: OR 09:17
PROVIDERS: ATTEND Internal Medicine Gastroenterology
DX: K52.9 Noninfective gastroenteritis and colitis, unspecified (principal); D12.2 Benign neoplasm of ascending colon; K62.89 Other specified diseases of anus and rectum; K57.30 Diverticulosis of large intestine without perforation or abscess without bleeding; K64.8 Other hemorrhoids; Z71.3 Dietary counseling and surveillance; I10 Essential (primary) hypertension; Z71.89 Other specified counseling; E03.9 Hypothyroidism, unspecified; E78.00 Pure hypercholesterolemia, unspecified; R55 Syncope and collapse; R06.02 Shortness of breath; T78.40XA Allergy, unspecified, initial encounter; X58.XXXA Exposure to other specified factors, initial encounter; Z01.810 Encounter for preprocedural cardiovascular examination; Z01.812 Encounter for preprocedural laboratory examination; Z79.82 Long term (current) use of aspirin; Z79.899 Other long term (current) drug therapy; Z68.39 Body mass index [BMI] 39.0-39.9, adult; Z80.0 Family history of malignant neoplasm of digestive organs
CPT/HCPCS: 36415 ×2; 45380; 83630; 83993; 85025; 85651; 86140; 86256; 86671; 87045; 87177; 87324; 87328; 87449; 93005; J2001; J2250; J2704; J3010; 45384

== ENCOUNTER 2023-04-16 20:17 | Emergency (ER) | payer OTHER ==
[~2023-04-16] VITALS: Ht 154.9 cm; Wt 97.1 kg
[~2023-04-16 20:17] MED LIST changes: -FENTANYL CITRATE/PF 100MCG/2 ML INJ ONE; -LIDOCAINE HCL 2% LOCAL INJ 5 ML SDV VIAL INJ ONE; -MIDAZOLAM HCL 2 MG/2 ML VIAL ONE; -PROPOFOL IV EMULSION 10 MG/ML 20 ML VIAL ONE
[2023-04-16] MEDS ORDERED: Morphine 4mg INJECTION 4 MG/ML INJ IV ONE (20:30)
[2023-04-16] MEDS ORDERED: ONDANSETRON HCL INJ 2MG/ML 2ML 2 MG/ML VIAL IV STA (20:30)
[2023-04-16] MEDS ORDERED: SODIUM CHLORIDE 0.9% 1000ML 1,000 ML IV SCH (20:30)
[2023-04-16 20:57] LABS: BASOPHILS % 0.5 % (0.0-1.0); EOSINOPHILS # (AUTO) 0.3 (0.0-0.4); EOSINOPHILS % 3.9 % (0.0-6.0); HEMATOCRIT 40.4 % (34.2-44.1); HEMOGLOBIN 14.7 g/dL (12.0-16.0); LYMPHOCYTES # (AUTO) 2.9 (1.0-3.2); LYMPHOCYTES % 33.3 % (18.0-39.1); MEAN CORPUSCULAR HEMOGLOBIN 33.4 pg (28-32); MEAN CORPUSCULAR HGB CONC 36.4 g/dL (31-35); MEAN CORPUSCULAR VOLUME 91.8 fL (81-99); MONOCYTES # (AUTO) 0.6 (0.2-0.8); MONOCYTES % 7.3 % (4.4-11.3); NEUTROPHILS # (AUTO) 4.8 (2.1-6.9); NEUTROPHILS % 54.9 % (38.7-80.0); PLATELET COUNT 243 x10e3/uL (140-360); RED CELL DISTRIBUTION WIDTH 12.1 % (11.7-14.4)
[2023-04-16 21:13] LABS: ALBUMIN 3.9 g/dL (3.5-5.0); ANION GAP 16.5 mmol/L (8-16); CREATININE, SERUM 0.84 mg/dL (0.57-1.11); POTASSIUM 3.5 mmol/L (3.5-5.1)
[2023-04-16] MEDS ORDERED: IOPAMIDOL 370 MG/ML 100 ML INFUS..BTL INJ ONE (21:19)
[2023-04-16 22:14] LABS: CLARITY,URINE CLOUDY (CLEAR); COLOR,URINE YELLOW (YELLOW); KETONES,URINE NEGATIVE (NEGATIVE); LEUKOCYTE ESTERASE ,URINE NEGATIVE (NEGATIVE); NITRITE,URINE NEGATIVE (NEGATIVE); PROTEIN,URINE DIPSTICK NEGATIVE (NEGATIVE); URINE UROBILINOGEN 0.2 mg/dL (0.2 - 1)
[2023-04-16 22:21] LABS: BACTERIA,URINE MANY /HPF; CALCIUM OXALATE CRYSTALS,UR MODERATE (FEW); EPITHELIAL CELLS,URINE MANY /LPF; MUCUS,URINE MANY (RARE)
[2023-04-16] MEDS ORDERED: METRONIDAZOLE500 MG PO (22:53)
[2023-04-16] MEDS ORDERED: CIPRO500 MG PO (22:53)
[2023-04-16] MEDS ORDERED: ONDANSETRON ODT4 MG PO (22:53)
[2023-04-16 23:05] VITALS: BP 159/98; O2SAT 99
== END 2023-04-16 23:08 | disposition home or self-care (01) ==
LOC: ER 20:20
DX: R50.9 Fever, unspecified (principal); K52.9 Noninfective gastroenteritis and colitis, unspecified; R11.0 Nausea; R10.31 Right lower quadrant pain
CPT/HCPCS: 36415; 74177; 80053; 81001; 83690; 85025; 99284; J2270; J2405; J7030; Q9967

== ENCOUNTER → 2024-06-19 | Outpatient (REF) | payer OTHER ==
[~2024-06-19] MED LIST changes: +CIPRO500 MG PO; +MECLIZINE HCL12.5 MG PO; +METRONIDAZOLE500 MG PO; +ONDANSETRON ODT4 MG PO
== END ==
LOC: DX 08:08
PROVIDERS: ATTEND Family Medicine
DX: Z13.820 Encounter for screening for osteoporosis (principal); Z78.0 Asymptomatic menopausal state
CPT/HCPCS: 77080

== ENCOUNTER 2025-07-28 15:11 | Emergency (ER) | payer OTHER ==
[~2025-07-28] VITALS: Ht 154.9 cm; Wt 71.7 kg
[~2025-07-28 15:11] MED LIST changes: +CYMBALTA30 MG PO; +DICYCLOMINE HCL10 MG PO
[2025-07-28] MEDS ORDERED: SODIUM CHLORIDE 0.9% 1000ML 1,000 ML ONE (16:03)
[2025-07-28] MEDS: SODIUM CHLORIDE 0.9% 1000ML 1,000 ML IV STA (16:12)
[2025-07-28] MEDS: ONDANSETRON HCL INJ 2MG/ML 2ML 2 MG/ML VIAL IV STA (16:35)
[2025-07-28] MEDS: DICYCLOMINE HCL 20 MG/2 ML VIAL IM ONE (16:36)
[2025-07-28] MEDS ORDERED: PROMETHAZINE 12.5MG/ NACL 0.9% 50 ML ONE (16:38)
[2025-07-28] MEDS ORDERED: DIPHENHYDRAMINE HCL INJ 50 MG/ML VIAL ONE (16:38)
[2025-07-28 16:43] LABS: BASOPHILS % 0.4 % (0.0-1.0); EOSINOPHILS % 1.6 % (0.0-6.0); LYMPHOCYTES % 25.7 % (18.0-39.1); MONOCYTES % 6.0 % (4.4-11.3); NEUTROPHILS % 66.1 % (38.7-80.0); RED CELL DISTRIBUTION WIDTH 12.3 % (11.7-14.4)
[2025-07-28 16:53] LABS: INR 1.02
[2025-07-28 17:03] LABS: EST GLOMERULAR FILTRATION RATE 97.0 ML/MIN (>=60)
[2025-07-28] MEDS ORDERED: IOPAMIDOL 370 MG/ML 100 ML INFUS..BTL INJ ONE (17:20)
[2025-07-28] MEDS: PROMETHAZINE 12.5MG/ NACL 0.9% 12.5 MG/50 ML BAG IV ONE (17:52)
[2025-07-28] MEDS: DIPHENHYDRAMINE HCL INJ 50 MG/ML VIAL IV ONE (17:52)
[2025-07-28] MEDS ORDERED: ONDANSETRON ODT4 MG PO (19:07)
[2025-07-28] MEDS ORDERED: ACETAMINOPHEN-1 EAC4 PO (19:07)
[2025-07-28 19:11] VITALS: PULSE 74; RESP 15; TEMP 98.3; O2SAT 98
== END 2025-07-28 19:14 | disposition home or self-care (01) ==
LOC: ER 15:48
DX: R11.2 Nausea with vomiting, unspecified (principal); R10.11 Right upper quadrant pain; I10 Essential (primary) hypertension; E03.9 Hypothyroidism, unspecified; K21.9 Gastro-esophageal reflux disease without esophagitis; F41.9 Anxiety disorder, unspecified; F32.A Depression, unspecified; Z87.19 Personal history of other diseases of the digestive system
CPT/HCPCS: 36415; 71045; 74177; 80053; 83690; 83735; 84484; 85025; 85610; 85730; 99284; J0500; J1200; J2405; J2470; J2550; J7030; Q9967